=== PATIENT | male | born 1945 ===

== ENCOUNTER 2021-09-19 05:43 | Inpatient (IN) ==
[2021-09-19] MEDS ORDERED: ACETAMINOPHEN 500 MG TABLET PO ONE (06:00)
[2021-09-19] MEDS ORDERED: GABAPENTIN 400 MG CAPSULE PO ONE (06:00)
[2021-09-19] MEDS ORDERED: FAMOTIDINE 20 MG TABLET PO ONE (06:00)
[2021-09-19] MEDS ORDERED: LACTATED RINGERS 1,000 ML IV SCH (06:00)
[2021-09-19] MEDS ORDERED: VANCOMYCIN INJ 1,000 MG in SODIUM CHLORIDE 0.9% 250 ML IV ONE (06:30)
[2021-09-19] MEDS ORDERED: BUPIVACAINE SPINAL 0.75% 2 ML AMP SPINAL ONE (06:42)
[2021-09-19] MEDS ORDERED: fentaNYL 100 MCG/2 ML VIAL ONE (06:42)
[2021-09-19] MEDS ORDERED: MIDAZOLAM 2 MG/2 ML VIAL ONE (06:42)
[2021-09-19] MEDS ORDERED: LIDOCAINE 1% 5 ML VIAL ONE (06:43)
[2021-09-19] MEDS ORDERED: ONDANSETRON 4 MG/2 ML VIAL IV PRN ×2 (07:13→08:53)
[2021-09-19] MEDS ORDERED: MAGNESIUM HYDROXIDE SUSP 30 ML UDCUP PO PRN (07:13)
[2021-09-19] MEDS ORDERED: TEMAZEPAM 7.5 MG CAPSULE PO PRN (07:13)
[2021-09-19] MEDS ORDERED: PROMETHAZINE 25 MG/1 ML VIAL IM PRN (07:13)
[2021-09-19] MEDS ORDERED: LACTULOSE 20 GM/30 ML UDCUP PO PRN (07:13)
[2021-09-19] MEDS ORDERED: diphenhydrAMINE CAP 25 MG CAPSULE PO PRN (07:13)
[2021-09-19] MEDS ORDERED: BISACODYL 10 MG SUPP RECTAL PRN (07:13)
[2021-09-19] MEDS ORDERED: MORPHINE 2 MG/1 ML SYRINGE IV PRN (07:22)
[2021-09-19] MEDS ORDERED: HYDROmorphone 2 MG/1 ML VIAL IV PRN (08:53)
[2021-09-19] MEDS: ceFAZolin 2,000 MG/50 ML DUPLEX IV SCH ×2 (13:33→22:21)
[2021-09-19] MEDS: TAMSULOSIN 0.4 MG CAPSULE PO SCH (13:33)
[2021-09-19] MEDS: MORPHINE 2 MG/1 ML SYRINGE IV PRN ×2 (13:33→20:37)
[2021-09-19] MEDS: ASPIRIN EC 81 MG TABLET PO SCH (14:39)
[2021-09-19] MEDS: FONDAPARINUX 2.5 MG/0.5 ML SYRINGE SUBCUT SCH (20:36)
[2021-09-19] MEDS: SIMVASTATIN 40 MG TABLET PO SCH (20:37)
[2021-09-19] MEDS: DOCUSATE SODIUM 100 MG CAPSULE PO SCH (20:37)
[2021-09-19] MEDS ORDERED: ALPRAZolam 0.5 MG TABLET PO PRN (21:00)
[2021-09-20] MEDS: MORPHINE 2 MG/1 ML SYRINGE IV PRN ×4 (00:35→18:41)
[2021-09-20 05:30] LABS: Basophils % 0.2 % (0.0-0.8); Eosinophils % 0.2 % (0.00-10.9); Hemoglobin 12.2 GM/DL (14.0-18.0); Immature Granulocytes % 0.3 %; Immature Granulocytes Absolute 0.04 #; Lymphocytes # 3.1 10*3/uL (1.4-4.0); Lymphocytes % 23.7 % (21.2-54.2); Mean Corpuscular Volume 98.4 FL (87-102); Neutrophils % 64.6 % (38.7-73.9); Platelet Count 259 T/CUMM (130-400); Red Blood Count 3.76 MC/CUMM (3.8-5.5); Red Cell Distribution Width 13.2 % (9.3-17.3); White Blood Count 13.2 T/CUMM (4-12)
[2021-09-20 06:00] LABS: Calcium 8.5 MG/DL (8.5-10.1); Osmolality,Calculated 274.7 MOS/KG (273-304); Potassium 3.9 MMOL/L (3.5-5.1)
[2021-09-20] MEDS ORDERED: ACETAMINOPHEN 325 MG TABLET PO PRN (07:14)
[2021-09-20] MEDS: ASPIRIN EC 81 MG TABLET PO SCH (08:30)
[2021-09-20] MEDS: DOCUSATE SODIUM 100 MG CAPSULE PO SCH ×2 (08:30→20:36)
[2021-09-20] MEDS: lisinopriL 10 MG TABLET PO SCH (08:30)
[2021-09-20] MEDS: METOPROLOL SUCCINATE XL 25 MG TABLET PO SCH (08:30)
[2021-09-20] MEDS: TAMSULOSIN 0.4 MG CAPSULE PO SCH (08:30)
[2021-09-20] MEDS: FINASTERIDE 5 MG TABLET PO SCH (08:30)
[2021-09-20] MEDS: SIMVASTATIN 40 MG TABLET PO SCH (20:36)
[2021-09-20] MEDS: FONDAPARINUX 2.5 MG/0.5 ML SYRINGE SUBCUT SCH (20:37)
[2021-09-21] MEDS: DOCUSATE SODIUM 100 MG CAPSULE PO SCH (09:12)
[2021-09-21] MEDS: FINASTERIDE 5 MG TABLET PO SCH (09:12)
[2021-09-21] MEDS: TAMSULOSIN 0.4 MG CAPSULE PO SCH (09:12)
[2021-09-21] MEDS: ASPIRIN EC 81 MG TABLET PO SCH (09:12)
[2021-09-21] MEDS: METOPROLOL SUCCINATE XL 25 MG TABLET PO SCH (09:12)
[2021-09-21] MEDS: lisinopriL 10 MG TABLET PO SCH (09:12)
[2021-09-21 11:22] VITALS: BP 132/74
[2021-09-21] MEDS ORDERED: FONDAPARINUX 2.5 MG/0.5 ML SYRINGE SUBCUT SCH (13:00)
== END 2021-09-21 15:16 | disposition home or self-care (01) | DRG 470 ==
LOC: N.OR 05:43 → N.SDSINP 05:45 → N.3E 12:35
PROVIDERS: ADMIT Orthopaedic Surgery; ATTEND Orthopaedic Surgery